=== PATIENT | male | born 1955 | race Caucasian/White ===

== ENCOUNTER 2017-04-24 20:54 | Inpatient (IN) | payer MEDICAID ==
[~2017-04-24] VITALS: Ht 167.6 cm; Wt 63.1 kg
[2017-04-24] MEDS ORDERED: PLEASE ENTER HEIGHT AND WEIGHT MC SCH (21:00)
[2017-04-24] MEDS ORDERED: OXYcodone/APAP 5/325MG TABLET PO ONE (21:00)
[2017-04-24] MEDS ORDERED: SODIUM CHLORIDE 0.9% 1,000 ML IV ONE (21:18)
[2017-04-24] MEDS ORDERED: SODIUM CHLORIDE FLUSH 10ML SYR IVF ONE (21:30)
[2017-04-24 21:55] LABS: BASOPHILS # (AUTO) 0.03 x10^3/uL (0-0.1); BASOPHILS % (AUTO) 0 % (0-1); EOSINOPHILS # (AUTO) 0.07 x10^3/uL (0-0.4); EOSINOPHILS % (AUTO) 1 % (1-7); LYMPHOCYTES # (AUTO) 1.36 x10^3/uL (1-3.4); LYMPHOCYTES % (AUTO) 15 % (22-44); MD NO; MEAN CORPUSCULAR HEMOGLOBIN 29.1 pg (27.5-34.5); MEAN CORPUSCULAR HGB CONC 33.7 g/dL (33.2-36.2); MEAN CORPUSCULAR VOLUME 86.2 fL (81-97); MEAN PLATELET VOLUME 8.7 fL (7.4-10.4); MONOCYTES # (AUTO) 0.95 x10^3/uL (0.2-0.8); MONOCYTES % (AUTO) 10 % (2-9); NEUTROPHILS # (AUTO) 6.79 x10^3/uL (1.8-6.8); NEUTROPHILS % (AUTO) 74 % (42-75); PLATELET COUNT 249 x10^3/uL (130-400); RED BLOOD COUNT 5.14 x10^6/uL (4.38-5.82); RED CELL DISTRIBUTION WIDTH 13.1 % (9.4-14.8)
[2017-04-24] MEDS: LABETALOL 5MG/ML, 20ML IVPush PRN ×3 (22:02→22:29)
[2017-04-24 22:04] LABS: INTERNATIONAL NORMALIZED RATIO 1.03 (0.93-1.1); PROTHROMBIN TIME 10.6 Seconds (9.6-11.5)
[2017-04-24 22:09] LABS: ALANINE AMINOTRANSFERASE 19 U/L (12-78); ANION GAP 10 mmol/L (5-15); CALCIUM 9.2 mg/dL (8.5-10.1); CHLORIDE 100 mmol/L (98-107); CREATININE 0.99 mg/dL (0.7-1.3)
[2017-04-24] MEDS ORDERED: LABETALOL 5MG/ML, 20ML ONE (22:09)
[2017-04-24 22:14] LABS: ALKALINE PHOSPHATASE 74 U/L (45-117); BILIRUBIN,TOTAL 0.5 mg/dL (0.2-1.0); TOTAL PROTEIN 8.3 g/dL (6.4-8.2); TROPONIN I < 0.015 ng/mL (0.000-0.045)
[2017-04-24] MEDS ORDERED: hydrALAzine 20 MG/ML, 1ML IV PRN (22:30)
[2017-04-24] MEDS ORDERED: LABETALOL 5MG/ML, 20ML IVPush PRN (22:30)
[2017-04-24] MEDS ORDERED: ENALAPRILAT 1.25 MG/ML, 2ML IV PRN (22:30)
[2017-04-24] MEDS ORDERED: NS + 20MEQ KCL 1,000 ML IV SCH (22:42)
[2017-04-24] MEDS ORDERED: HYDROcodone/APAP 5/325 TABLET PO PRN (23:00)
[2017-04-24] MEDS ORDERED: DOCUSATE 100 MG CAPSULE PO PRN (23:00)
[2017-04-24] MEDS ORDERED: POLYETHYLENE GLYCOL 17 GM PACKET PO PRN (23:00)
[2017-04-24] MEDS ORDERED: ONDANSETRON 2MG/ML, 2ML IVPush PRN (23:00)
[2017-04-24] MEDS ORDERED: ACETAMINOPHEN 325 MG TABLET PO PRN (23:00)
[2017-04-24] MEDS ORDERED: NS + 20MEQ KCL 1,000 ML IV ONE (23:21)
[2017-04-25] MEDS ORDERED: PANTOPRAZOLE 20MG TABLET ONE (07:40)
[2017-04-25] MEDS: PANTOPROZOLE 40MG TABLET PO SCH ×2 (07:43→08:39)
[2017-04-25 08:30] VITALS: BP 156/88
[2017-04-25] MEDS: INSULIN LISPRO 100 UNITS/ML, PEN SQ-INSULIN SCH ×4 (11:05→22:05)
[2017-04-25] MEDS: SENNA/DOCUSATE TABLET PO SCH (11:05)
[2017-04-25 13:27] LABS: AMPHETAMINE SCREEN, URINE Negative (Negative); BARBITURATE SCREEN, URINE Negative (Negative); BENZODIAZEPINE SCREEN, URINE Negative (Negative); CANNABINOID SCREEN, URINE Negative (Negative); COCAINE SCREEN, URINE Negative (Negative); METHADONE SCREEN, URINE Negative (Negative); OPIATE SCREEN, URINE Negative (Negative)
[2017-04-25 13:58] LABS: MICROSCOPIC NOT IND
[2017-04-25 14:07] LABS: CULTURE INDICATED? NO
[2017-04-25] MEDS ORDERED: LORazepam 2 MG/ML, 1ML ONE (14:28)
[2017-04-25] MEDS ORDERED: LORazepam 2 MG/ML, 1ML IVPush ONE (14:30)
[2017-04-26 04:00] VITALS: BP 156/86
[2017-04-26 08:16] LABS: BASOPHILS # (AUTO) 0.03 x10^3/uL (0-0.1); BASOPHILS % (AUTO) 0 % (0-1); EOSINOPHILS # (AUTO) 0.14 x10^3/uL (0-0.4); EOSINOPHILS % (AUTO) 2 % (1-7); LYMPHOCYTES # (AUTO) 1.66 x10^3/uL (1-3.4); LYMPHOCYTES % (AUTO) 21 % (22-44); MD NO; MEAN CORPUSCULAR HGB CONC 33.2 g/dL (33.2-36.2); MEAN CORPUSCULAR VOLUME 87.2 fL (81-97); MEAN PLATELET VOLUME 9.4 fL (7.4-10.4); MONOCYTES # (AUTO) 0.77 x10^3/uL (0.2-0.8); MONOCYTES % (AUTO) 10 % (2-9); NEUTROPHILS # (AUTO) 5.16 x10^3/uL (1.8-6.8); NEUTROPHILS % (AUTO) 67 % (42-75); PLATELET COUNT 232 x10^3/uL (130-400); RED BLOOD COUNT 5.04 x10^6/uL (4.38-5.82); RED CELL DISTRIBUTION WIDTH 13.4 % (9.4-14.8)
[2017-04-26 08:29] LABS: ANION GAP 6 mmol/L (5-15); CALCIUM 8.4 mg/dL (8.5-10.1); CHLORIDE 104 mmol/L (98-107); CHOLESTEROL, TOTAL 124 mg/dL (140-239); CREATININE 1.04 mg/dL (0.7-1.3)
[2017-04-26 08:31] LABS: CHOL/HDL RATIO 3.9; HDL CHOL % 26 % (26-37); HDL CHOLESTEROL (DIRECT) 32 mg/dL (40-60); LDL CHOLESTEROL,CALCULATED 68 mg/dL (54-169); LDL/HDL RATIO 2.1 (0.5-3.0); TRIGLYCERIDES 121 mg/dL (50-200); VLDL CHOLESTEROL 24 mg/dL (0-25)
[2017-04-26] MEDS: SENNA/DOCUSATE TABLET PO SCH (09:00)
[2017-04-26] MEDS: LISINOPRIL 10 MG TABLET PO SCH ×2 (09:01→09:12)
[2017-04-26] MEDS: INSULIN LISPRO 100 UNITS/ML, PEN SQ-INSULIN SCH ×4 (09:02→23:43)
[2017-04-26] MEDS ORDERED: LABETALOL 5MG/ML, 20ML IVPush PRN (12:30)
[2017-04-26] MEDS: hydrALAzine 20 MG/ML, 1ML IV PRN (15:11)
[2017-04-26] MEDS ORDERED: ENALAPRILAT 1.25 MG/ML, 2ML IV PRN (16:30)
[2017-04-26 18:03] LABS: HCT (SEDRATE) 42.6 % (39.2-51.8)
[2017-04-26 18:04] LABS: FREE T4 (FREE THYROXINE) 1.27 ng/dL (0.76-1.46); THYROID STIMULATING HORMONE 1.34 mIU/L (0.358-3.740)
[2017-04-26 19:35] VITALS: BP 168/72
[2017-04-26] MEDS ORDERED: ATORVASTATIN 80 MG TABLET PO SCH (21:00)
[2017-04-27 01:32] VITALS: BP 157/76
[2017-04-27 04:37] VITALS: BP 160/85
[2017-04-27 05:18] LABS: BASOPHILS # (AUTO) 0.02 x10^3/uL (0-0.1); BASOPHILS % (AUTO) 0 % (0-1); EOSINOPHILS # (AUTO) 0.17 x10^3/uL (0-0.4); EOSINOPHILS % (AUTO) 2 % (1-7); LYMPHOCYTES # (AUTO) 1.27 x10^3/uL (1-3.4); LYMPHOCYTES % (AUTO) 16 % (22-44); MD NO; MEAN CORPUSCULAR HEMOGLOBIN 29.2 pg (27.5-34.5); MEAN CORPUSCULAR HGB CONC 33.6 g/dL (33.2-36.2); MEAN CORPUSCULAR VOLUME 86.7 fL (81-97); MEAN PLATELET VOLUME 9.4 fL (7.4-10.4); MONOCYTES # (AUTO) 0.78 x10^3/uL (0.2-0.8); MONOCYTES % (AUTO) 10 % (2-9); NEUTROPHILS # (AUTO) 5.65 x10^3/uL (1.8-6.8); NEUTROPHILS % (AUTO) 72 % (42-75); PLATELET COUNT 241 x10^3/uL (130-400); RED BLOOD COUNT 5.04 x10^6/uL (4.38-5.82); RED CELL DISTRIBUTION WIDTH 13.6 % (9.4-14.8)
[2017-04-27 05:28] LABS: CHLORIDE 102 mmol/L (98-107)
[2017-04-27 05:33] LABS: ANION GAP 8 mmol/L (5-15); CALCIUM 8.9 mg/dL (8.5-10.1); CREATININE 1.12 mg/dL (0.7-1.3)
[2017-04-27] MEDS ORDERED: POTASSIUM CHLORIDE 20 MEQ TAB.ER.PRT PO ONE (07:30)
[2017-04-27 07:35] VITALS: BP 157/72
[2017-04-27] MEDS: SENNA/DOCUSATE TABLET PO SCH (07:56)
[2017-04-27] MEDS: INSULIN LISPRO 100 UNITS/ML, PEN SQ-INSULIN SCH ×5 (08:05→22:26)
[2017-04-27] MEDS: PANTOPROZOLE 40MG TABLET PO SCH (08:06)
[2017-04-27] MEDS: LISINOPRIL 10 MG TABLET PO SCH (08:06)
[2017-04-27 12:12] LABS: HEMOGLOBIN A1C 9.2 % (4.2-6.3)
[2017-04-27 12:47] VITALS: BP 153/90
[2017-04-27] MEDS: hydrALAzine 20 MG/ML, 1ML IV PRN (17:43)
[2017-04-27 18:59] VITALS: BP 154/62
[2017-04-27] MEDS: LISINOPRIL 20 MG TABLET PO SCH (22:26)
[2017-04-28 01:06] VITALS: BP 146/75
[2017-04-28 07:19] VITALS: BP 169/82
[2017-04-28] MEDS: INSULIN LISPRO 100 UNITS/ML, PEN SQ-INSULIN SCH ×4 (08:09→21:51)
[2017-04-28] MEDS: LISINOPRIL 20 MG TABLET PO SCH ×2 (09:02→21:50)
[2017-04-28] MEDS: SENNA/DOCUSATE TABLET PO SCH (09:02)
[2017-04-28 13:41] VITALS: BP 169/69
[2017-04-28] MEDS: hydrALAzine 20 MG/ML, 1ML IV PRN (15:38)
[2017-04-28 19:05] VITALS: BP 131/73
[2017-04-29 00:46] VITALS: BP 148/69
[2017-04-29 07:57] VITALS: BP 163/75
[2017-04-29] MEDS: INSULIN LISPRO 100 UNITS/ML, PEN SQ-INSULIN SCH ×3 (08:41→16:00)
[2017-04-29] MEDS: LISINOPRIL 20 MG TABLET PO SCH (08:42)
[2017-04-29] MEDS: SENNA/DOCUSATE TABLET PO SCH (08:42)
[2017-04-29] MEDS ORDERED: LISI-170 PO (13:12)
[2017-04-29] MEDS ORDERED: INSU100I11 SQ-INSULIN (13:12)
[2017-04-29] MEDS ORDERED: ATOR40TA78 PO (13:15)
[2017-04-29 14:31] VITALS: BP 179/76
[2017-04-29 16:32] LABS: ANA SCREEN POSITIVE (Negative)
[2017-04-30 15:25] LABS: ANTI-NUCLEAR ANTIBODY PATTERN SPECKLED
== END 2017-04-29 17:04 | DRG 65 ==
LOC: SUATTDRO 22:28 → ED 23:08 → EDIP 04-25 00:17 → CCU 04-25 08:15 → 4WST 04-26 19:35
PROVIDERS: ADMIT Family Medicine; ATTEND Family Medicine
DX: I61.1 Nontraumatic intracerebral hemorrhage in hemisphere, cortical (principal); I16.1 Hypertensive emergency; F05 Delirium due to known physiological condition; G30.9 Alzheimer's disease, unspecified; E11.65 Type 2 diabetes mellitus with hyperglycemia; I11.9 Hypertensive heart disease without heart failure; F02.80 Dementia in other diseases classified elsewhere, unspecified severity, without behavioral disturbance, psychotic disturbance, mood disturbance, and anxiety; Z60.2 Problems related to living alone; Z86.73 Personal history of transient ischemic attack (TIA), and cerebral infarction without residual deficits
CPT/HCPCS: 36415; 70450; 70553; 71045; 80048; 80053; 80061; 80307; 81003; 82140; 82962; 83036; 83735; 84439; 84443; 84484; 85025; 85610; 85613; 85651; 85670; 85705; 85730; 85732; 86038; 86039; 86430; 87081; 93005; 93306; 93880; 96374; 99291; 99292; J3480; 92523-GN; J0360; J1815; J2060; J7030